=== PATIENT | female | born 1960 | race Caucasian/White ===

== ENCOUNTER 2023-03-19 07:18 | Emergency (ER) | payer BC ==
[2023-03-19] MEDS ORDERED: Ipratropium/Albuterol 3 ML NEB ONE (07:46)
== END 2023-03-19 08:29 | disposition home or self-care (01) ==
LOC: BURERS 07:18
DX: J20.9 Acute bronchitis, unspecified (principal); B34.9 Viral infection, unspecified; F17.210 Nicotine dependence, cigarettes, uncomplicated
CPT/HCPCS: 71046; 87804; 87807; 94640; J7620